=== PATIENT | male | born 1995 | race African-American/Black ===

== ENCOUNTER 2017-10-09 00:18 | Emergency (ER) | payer OTHER | END 2017-10-09 01:40 | disposition home or self-care (01) | LOC: ER 01:40 | DX: S39.012A Strain of muscle, fascia and tendon of lower back, initial encounter (principal); M54.6 Pain in thoracic spine; X50.0XXA Overexertion from strenuous movement or load, initial encounter; Y93.89 Activity, other specified; Y99.8 Other external cause status; Y92.89 Other specified places as the place of occurrence of the external cause | CPT/HCPCS: 72072; 72100; 99284 ==

== ENCOUNTER 2018-01-24 22:14 | Emergency (ER) | payer OTHER ==
[2018-01-24] MEDS ORDERED: IBUPROFEN 600 MG TABLET. PO (22:45)
== END 2018-01-24 23:01 | disposition home or self-care (01) ==
LOC: ER 22:14
DX: S80.12XA Contusion of left lower leg, initial encounter (principal); W20.8XXA Other cause of strike by thrown, projected or falling object, initial encounter; Y93.89 Activity, other specified; Y99.8 Other external cause status; Y92.89 Other specified places as the place of occurrence of the external cause
CPT/HCPCS: 73590; 99284

== ENCOUNTER 2021-09-07 10:03 | Emergency (ER) | payer OTHER ==
[~2021-09-07] VITALS: Ht 167.6 cm; Wt 109.1 kg
[~2021-09-07 10:03] MED LIST: TRAM-48 PO
[2021-09-07 10:08] VITALS: BP 152/84
[2021-09-07] MEDS ORDERED: DOXY100C3 PO (10:27)
--- NOTE | 2021-09-07 10:27 | PHYS DOC ---
Past Medical History Past Medical History: No Pertinent History Past Surgical History: No Surgical History Smoking Status: Never Smoker Alcohol Use: None Drug Use: None General Adult EDM: Chief Complaint: SEXUALLY TRANSMITTED DISEASE HPI: HPI: Patient is a 26-year-old male that presents today with burning with urination. Patient states that he woke up this morning and urinated and had a burning sensation, he is presenting today because he has had unprotected sex recently and he is concerned with an STI. Review of Systems: Review of Systems: Constitutional: Denies fever or chills. [] Eyes: Denies change in visual acuity. [] HENT: Denies nasal congestion or sore throat. [] Respiratory: Denies cough or shortness of breath. [] Cardiovascular: Denies chest pain or edema. [] GI: Denies abdominal pain, nausea, vomiting, bloody stools or diarrhea. [] : dysuria. [] Musculoskeletal: Denies back pain or joint pain. [] Integument: Denies rash. [] Neurologic: Denies headache, focal weakness or sensory changes. [] Endocrine: Denies polyuria or polydipsia. [] Lymphatic: Denies swollen glands. [] Psychiatric: Denies depression or anxiety. [] Heart Score: C/O Chest Pain: No Risk Factors: Risk Factors: DM, Current or recent (<one month) smoker, HTN, HLP, family history of CAD, obesity. Risk Scores: Score 0 - 3: 2.5% MACE over next 6 weeks - Discharge Home Score 4 - 6: 20.3% MACE over next 6 weeks - Admit for Clinical Observation Score 7 - 10: 72.7% MACE over next 6 weeks - Early Invasive Strategies Allergies: Allergies: Allergies Coded Allergies Type Severity Reaction Last Updated Verified No Known Drug Allergies 09/07/21 No Physical Exam: PE: Constitutional: Well developed, well nourished, no acute distress, non-toxic appearance. [] HENT: Normocephalic, atraumatic, bilateral external ears normal, oropharynx moist, no oral exudates, nose normal. [] Eyes: PERRLA, EOMI, conjunctiva normal, no discharge. [] Neck: Normal range of motion, no tenderness, supple, no stridor. [] Cardiovascular:Heart rate regular rhythm, no murmur [] Lungs & Thorax: Bilateral breath sounds clear to auscultation [] Abdomen: Bowel sounds normal, soft, no tenderness, no masses, no pulsatile masses. [] Skin: Warm, dry, no erythema, no rash. [] Back: No tenderness, no CVA tenderness. [] Extremities: No tenderness, no cyanosis, no clubbing, ROM intact, no edema. [] Neurologic: Alert and oriented X 3, normal motor function, normal sensory function, no focal deficits noted. [] Psychologic: Affect normal, judgement normal, mood normal. [] Current Patient Data: Vital Signs: Vital Signs Date Time Temp Pulse Resp B/P (MAP) Pulse Ox O2 Delivery O2 Flow Rate FiO2 09/07/21 10:08 98.0 88 14 152/84 (106) 96 98.0 EKG: EKG: [] Radiology/Procedures: Radiology/Procedures: [] Course & Med Decision Making: Course & Med Decision Making Pertinent Labs and Imaging studies reviewed. (See chart for details) Due to patient's recent unprotected sex and the symptoms he is displaying I will treat him for an STI infection a dose of ceftriaxone here in the emergency department and a prescription for doxycycline. Patient was instructed to use safe sex practices and to take his antibiotics completely in order to get rid of the infection. Patient is instructed to abstain from sex until his antibiotic is completed. Natanael Disclaimer: Natanael Disclaimer: This electronic medical record was generated, in whole or in part, using a voice recognition dictation system. Departure Departure Impression: Primary Impression: STI (sexually transmitted infection) Disposition: HOME / SELF CARE / HOMELESS Condition: STABLE Referrals: NO PCP (PCP) Patient Instructions: Sexually Transmitted Disease Additional Instructions: Doxycycline 1 tablet twice daily for 7 full days Abstain from sex for the next 7 days while under antibiotic treatment Instruct her partner that they will also need to be treated as well Follow-up with one of the clinics provided below for further management if you continue to have symptoms. [facility] [address] [place], [place] [id number] [facility] [address] [place] [address] [place] [address] [facility] [address] [id number] Counts Include 234 [facility] [address] [place] [address] [facility] [address] [place] [address] [facility] [place] [address] [place] [address] [facility] [address] [place] [address] [facility] [address] [place] [address] [facility] [address] [place] [address] Scripts Doxycycline Hyclate (DOXYCYCLINE HYCLATE) 100 Mg Capsule 1 CAP PO BID, #14 CAP Prov: JUSTYN KEVIN CHUCK SPLITTER 09/07/21 JUSTYN KEVIN CHUCK SPLITTER Sep 07, 2021 10:27
[2021-09-07] MEDS ORDERED: cefTRIAXone IM 500 MG VIAL. IM ONE (10:30)
[2021-09-07 12:18] LABS: BACTERIA,URINE FEW /HPF (0-FEW); BILIRUBIN,URINE NEGATIVE (NEG); CLARITY,URINE CLEAR; COLOR,URINE YELLOW; NITRITE,URINE NEGATIVE (NEG); PROTEIN,URINE TRACE mg/dL (NEG-TRACE); UROBILINOGEN,URINE 0.2 mg/dL (0.2 mg/dL)
== END 2021-09-07 10:48 | disposition home or self-care (01) ==
LOC: ER 10:03
DX: A64 Unspecified sexually transmitted disease (principal)
CPT/HCPCS: 81001; 87491; 87591; 96372; 99283; J0696